=== PATIENT | male | born 1955 | race Caucasian/White ===

== ENCOUNTER → 2017-09-21 11:38 | Outpatient (CLI) | payer OTHER, SELFPAY ==
[2017-09-21 14:41] LABS: Hematocrit 39.9 % (40-54); Hemoglobin 13.2 g/dl (13.0-16.5); Mean Corp Hgb Conc 33.1 g/gl (32-36); Mean Corpuscular Hgb 28.8 pg (27.0-32.0); Mean Corpuscular Volume 87.1 fL (80-94); Mean Platelet Vol. 9.2 fl (6.2-12.0); Platelet Count 209 K/mm3 (150-450); RBC Distribution Width CV 13.5 % (11.6-14.6); Red Blood Count 4.58 M/mm3 (4.6-6.2); White Blood Count 4.6 K/mm3 (4.4-11.0)
[2017-09-21 14:53] LABS: Anion Gap 9 (5-15); BUN 15 mg/dL (7-18); BUN/Creat Ratio 15.8 RATIO (10-20); Calcium,Total 8.7 mg/dL (8.5-10.1); Chloride 105 mmol/L (98-107); Cholesterol 187 mg/dL (200); Creatinine, Serum 0.95 mg/dL (0.70-1.30); EST Glomerular Filtration Rate 85 mL/min (>60); Est Glom Filt Rate - Afr Amer 103 mL/min (>60); Glucose 79 mg/dL (74-106); High Density Lipoprotein 67 mg/dL; Potassium 4.2 mmol/L (3.5-5.1); Scan Indicated on CBC? Y/N NO; Sodium Level 140 mmol/L (136-145); Triglycerides 60 mg/dL; Very Low Density Lipoprotein 12 mg/dL (5-40)
== END ==
PROVIDERS: Family Provider Family Medicine; PCP Family Medicine; Visit Provider Family Medicine
DX: Z00.00 Encounter for general adult medical examination without abnormal findings (principal)
CPT/HCPCS: 36415; 80048; 80061; 85027

== ENCOUNTER → 2019-05-11 09:52 | Outpatient (CLI) | payer OTHER, SELFPAY ==
[2019-05-11 12:26] LABS: Anion Gap 7 (5-15); BUN 17 mg/dL (7-18); BUN/Creat Ratio 16.7 RATIO (10-20); Calcium,Total 8.9 mg/dL (8.5-10.1); Chloride 106 mmol/L (98-107); Cholesterol 186 mg/dL (200); Creatinine, Serum 1.02 mg/dL (0.70-1.30); EST Glomerular Filtration Rate 78 mL/min (>60); Est Glom Filt Rate - Afr Amer 94 mL/min (>60); Glucose 92 mg/dL (74-106); High Density Lipoprotein 51 mg/dL; PSA,Total - Annual Screen 2.64 ng/mL (0.00-4.00); Potassium 4.5 mmol/L (3.5-5.1); Sodium Level 141 mmol/L (136-145); Triglycerides 88 mg/dL; Very Low Density Lipoprotein 18 mg/dL (5-40)
[2019-05-11 13:14] LABS: Hepatitis C Antibody Non-Reactive (Nonreactive)
== END ==
PROVIDERS: Family Provider Family Medicine; PCP Family Medicine; Visit Provider Family Medicine
DX: Z00.00 Encounter for general adult medical examination without abnormal findings (principal); Z12.5 Encounter for screening for malignant neoplasm of prostate; Z11.59 Encounter for screening for other viral diseases; I10 Essential (primary) hypertension
CPT/HCPCS: 36415; 80048; 80061; 84153; 86803; G0103

== ENCOUNTER → 2019-05-22 08:44 | Outpatient (CLI) | payer MEDICARE, SELFPAY ==
--- NOTE | 2019-05-22 08:46 | US_ITS ---
PROCEDURES: ULTRASOUND AORTA REASON FOR EXAM: Male, 64 years old. Screening for abdominal aortic aneurysm. TECHNIQUE: Ultrasound evaluation of the aorta was performed with real-time and static ohara-scale imaging. COMPARISON: None. FINDINGS: There is atherosclerotic plaque formation of the abdominal aorta. Aorta measures: Proximal 2.0 cm. Middle 1.5 cm. Distal 1.4 cm. Aorta measure transversely: Proximal 2.4 cm. Middle 1.6 cm. Distal 1.5 cm. Right iliac artery measures: 0.8 cm. Right iliac artery measure transversely: 0.9 cm. Left iliac artery measures: 0.8 cm. Left iliac artery measure transversely: 0.8 cm. There is no demonstrated aneurysm.. US/Aorta IMPRESSION: No infrarenal abdominal aortic aneurysm. Scattered plaques in the infrarenal abdominal aorta. Electronically Signed: Moy Bucio, at 10:18 EST , Service support ,
== END ==
PROVIDERS: Family Provider Family Medicine; PCP Family Medicine; Referring Provider Family Medicine; Visit Provider Family Medicine
DX: Z00.00 Encounter for general adult medical examination without abnormal findings (principal)
CPT/HCPCS: 76775

== ENCOUNTER 2019-12-20 19:32 | Observation (INO) | payer MEDICARE, SELFPAY ==
[2019-12-20] VITALS (11 sets, daily range): BP systolic 94–133; BP diastolic 55–89; PULSE 53–582; RESP 14–16; TEMP 35.8–36.9; O2SAT 99–100; BMI 22.3; BMI 21.6
--- NOTE | 2019-12-20 20:01 | EKG12_ITS ---
Test Reason : CP Blood Pressure : / mmHG Vent. Rate : 056 BPM Atrial Rate : 056 BPM P-R Int : 124 ms QRS Dur : 088 ms QT Int : 468 ms P-R-T Axes : 040 070 054 degrees QTc Int : 451 ms Sinus bradycardia Nonspecific ST abnormality Abnormal ECG Confirmed by MARITZA MURDOCK, ES ([id number]), publishing editor SONIA ANDERSON ([id number]) on 12/25/2019 2:00:21 PM Referred By: DAYNA Confirmed By:MAURICE SALAS MD
[2019-12-20 20:08] LABS: Absolute Lymphocyte Count 2.72 X10^3/uL (0.83-4.51); Absolute Neutrophil Count 3.7 X10^3/uL (2.0-7.7); Basophil# 0.08 X10^3/uL; Eosinophils% 8.7 % (0-5); Hematocrit 38.5 % (40-54); Hemoglobin 13.1 g/dL (13.0-16.5); Lymphocyte # 2.72 X10^3/ul (4.0); Lymphocyte % 33.9 % (19-41); Mean Corpuscular Hgb 30.2 pg (27.0-32.0); Mean Corpuscular Volume 88.7 fL (80-94); Mean Platelet Vol. 9.3 fl (6.2-12.0); Monocyte# 0.85 X10^3/uL; Monocyte% 10.6 % (0-10); NRBC Flagged by Analyzer 0 % (0-5); Neutrophil # 3.65 X10^3/uL (2.7-7.7); Neutrophil % 45.6 % (47-70); Platelet Count 317 K/mm3 (150-450); RBC Distribution Width CV 12.8 % (11.6-14.6); Red Blood Count 4.34 M/mm3 (4.6-6.2)
--- NOTE | 2019-12-20 20:15 | RAD_ITS ---
STUDY: X-RAY CHEST REASON FOR EXAM: Male, 64 years old. Syncope TECHNIQUE: Frontal view of the chest COMPARISON: None. FINDINGS: The lungs are hyperinflated, but clear. There are no pleural effusions. There is no pneumothorax. The heart is normal in size. The visualized osseous structures are within normal limits. RAD/Chest 1 View (Portable) IMPRESSION: No acute thoracic pathology. Electronically Signed: Zach Serrano, at 20:30 EDT Tel , Service support ,
--- NOTE | 2019-12-20 20:19 | ED.DCSUM_ITS ---
- ER Visit Summary Date of Service: 12/20/19 Chief Complaint: Syncope History of Present Illness: The patient is a 64 M who had a syncopal episode at home. Patient drank orange juice this morning. He had a beer later in the day but was not drinking water. He had been outside chopping wood for several birdie rs. He sat down and was smoking his pipe. His noted that he went unresponsive for less than a minute. His head was bobbing and he seemed confused. He has no history of seizures or syncope. History of hypertension but denies any other significant history. Physical Examination: Blood pressure 94/55 and heart rate 53. Otherwise vitals normal. Patient is lying supine. Alert and oriented. No acute distress. Head and neck atraumatic. Heart regular. Extremities normal, no edema. Skin normal in color. Test Results: EKG showed sinus rhythm at a rate of [address] changes. Labs and chest x-ray pending. Emergency Department Course and Treatment: Patient was treated with IV fluids while awaiting results. Repeat blood pressure was 102 systolic. Will treat with additional fluids and check orthostatics. Patient was orthostatic positive. He received additional fluids. Repeat blood pressure 115/70. CBC, BMP, troponin unremarkable. Chest x-ray unremarkable. EKG as above. Patient has continued severe symptoms and I believe he will need additional IV fluids and telemetry. I contacted the hospitalist. Please note that although the patient does not have documented orthostatic vital signs, the patient could not stand because of lightheadedness and so he was considered positive. Treatment Plan: As above Disposition: Admission Impression: Syncope, orthostatic hypotension This note was generated with [employer] dictation software. It may contain incorrect words, spelling, and punctuation that were not noted in review of the chart prior to signing ED Disposition - Plan for ED Patient: Referrals: Romaine Suarez MD [Primary Care Provider] -
[2019-12-20] MEDS: 0.9% Normal Saline 1,000 ML 1000 ML IV (20:26)
[2019-12-20 20:27] LABS: Anion Gap 9 (5-15); BUN 24 mg/dL (7-18); BUN/Creat Ratio 18.5 RATIO (10-20); Calcium,Total 9.3 mg/dL (8.5-10.1); Chloride 109 mmol/L (98-107); EST Glomerular Filtration Rate 59 mL/min (>60); Est Glom Filt Rate - Afr Amer 71 mL/min (>60); Estimated Creatinine Clearance 53.37 ml/min; Glucose 120 mg/dL (74-106); Sodium Level 142 mmol/L (136-145)
--- NOTE | 2019-12-20 22:13 | PCM.HP.STD ---
Problem List (1) Syncope Status: Acute History of Present Illness Date of Admission: 12/20/19 Chief Complaint: syncope The patient is a 64 year old M with a significant history of hypertension who presented to the emergency department with syncope. His symptoms occurred on the same day of presentation. Patient did some hard work chopping wood after which he drank some beer and smoked pipe. While sitting in his chair he had presyncope. His noticed that patient had passed out. Reportedly he passed out and under 1 minute. He denied any nausea vomiting before the syncopal episode. However after his syncope he had nausea and vomiting. At the emergency department his blood pressure was marginal. In an attempt to check his blood pressure at emergency department patient felt nauseated; weak and wobbly. Past Medical History Medical History: Medical History (Last Updated 12/21/19 @ 01:[address] Alex Celeste MD) Hypertension I10 Allergies No Known Allergies Allergy (Verified 12/20/19 19:40) Home Medications: Ambulatory Orders Medication Instructions Recorded Lisinopril [Zestril] 20 mg PO DAILY 12/20/19 Surgical History: appendectomy Smoking Status: Current some day smoker Tobacco Use: Pipe Alcohol: Occasional - *Family History Maternal History Items: Heart Disease, Hypertension Paternal History Items: Stroke Review of Systems Constitutional: Denies: Chills, Fever, Weight Change HEENT: Denies: Head Aches, Sinus Congestion, Sinus Drainage Cardiovascular: Reports: Syncope. Denies: Chest Pain, Palpitations Respiratory: Denies: Cough, Shortness of breath at rest, Sputum production Gastrointestinal: Reports: Nausea, Vomiting. Denies: Abdominal Pain Genitourinary: Denies: Dysuria Musculoskeletal: Denies: Joint Pain, Joint Tenderness Skin: Denies: Rash, Wounds Neurological: Denies: Numbness, Tingling, Focal weakness Psychiatric: Denies: Anxiety, Depression, Homicidal Ideations, Suicidal Ideations Hematologic/ Lymphatic: Denies: Easy Bruising, Easy Bleeding VTE Information - Inpt Only VTE Present on Admission: No VTE Mechan Device Prophylaxis: None VTE Pharm Prophylaxis ordered?: Yes Patient Problems: Active and Suspected Problems (Last Updated 12/21/19 @ 01:[address] Alex Celeste MD) Syncope (Acute) - Physical Exam Vitals/I&O's: Vital Signs Temp Pulse Resp BP Pulse Ox 96.5 F L 56 L 14 113/67 100 12/20/19 19:33 12/20/19 21:00 12/20/19 21:00 12/20/19 21:00 12/20/19 21:00 Oxygen Delivery Method Room Air Weight: 66.6 kg Body Mass Index (BMI) 22.3 General: Alert, Oriented x3, Cooperative HEENT: Atraumatic, PERRLA, EOMI, Normocephalic Neck: Supple, No JVD, Negative Carotid Bruits, Trachea Midline Lungs: Clear to auscultation, Normal air movement, No rhonchi, No wheeze, No rales Cardiovascular: Normal S1, Normal S2, No murmurs, Bradycardic Abdomen: Bowel Sounds Present, Soft, Non Tender Extremities: No edema, Capillary Refill Less than 3 Seconds Skin: No rashes, No breakdown Musculoskeletal: No Tenderness to Palpation of Joints or Extremities Neurological: Cranial nerves II-XII grossly intact Psych/Mental Status: Normal Affect, Appropriate Laboratory Results 12/20/19 19:15: WBC 8.0, RBC 4.34 L, Hgb 13.1, Hct 38.5 L, MCV 88.7, MCH 30.2, MCHC 34.0, RDW Std Deviation 41.0, RDW Coeff of [place] 12.8, Plt Count 317, MPV 9.3, Immature Gran % (Auto) 0.200, Neut % (Auto) 45.6 L, Lymph % (Auto) 33.9, [place] % (Auto) 10.6 H, Eos % (Auto) 8.7 H, Baso % (Auto) 1.0, Absolute Neuts (auto) 3.7, Absolute Lymphs (auto) 2.72, Nucleated RBC % 0 12/20/19 19:15: Sodium 142, Potassium 4.0, Chloride 109 H, Carbon Dioxide 24.0, Anion Gap 9, BUN 24 H, Creatinine 1.30, Estim Creat Clear Calc 53.37, Est GFR (MDRD) Af Amer 71, Est GFR (MDRD) Non-Af 59 L, BUN/Creatinine Ratio 18.5, Glucose 120 H, Calcium 9.3, Troponin I < 0.015 Assessment/Plan All Active Problems (Last Updated 12/21/19 @ 01:[address] Alex Celeste MD) Syncope (Acute) The patient is a 64 year old M with a significant history of hypertension who presented to the emergency department with syncope. Syncope EKG tracing was reviewed. It showed sinus bradycardia with a rate of 56. There were nonspecific ST or T wave abnormalities. Actual image of chest x-ray was independently reviewed. No acute cardiopulmonary process was seen. We will observe the patient in the progressive care unit on telemetry. Will check echocardiogram. Patient received IV fluid bolus at emergency department. We will continue to hydrate with maintenance normal saline. In the meantime we will stop his home blood pressure medications. Reportedly previously was on 10 mg of lisinopril. Lisinopril 10 mg was stopped for about 6 months. Thereafter he was prescribed 20 mg of lisinopril. Has been taking lisinopril 20 mg for about 8 months. Tobacco abuse Counseled. DVT prophylaxis Subcutaneous Lovenox. OBSV E&M: 63307 Initial observation care L3
[2019-12-21 00:01] VITALS: BMI 21.6
--- NOTE | 2019-12-21 00:08 | ECHOD_ITS ---
Reason For Study: Syncope Procedure This was a 2D Doppler, Color Flow transthoracic echocardiogram. Exam performed portable in patient room. Left Ventricle Normal LV size. The estimated ejection fraction is 60 %. No evidence for diastolic dysfunction. No regional wall motion abnormalities noted. Right Ventricle Normal RV size. Normal systolic function. Atria Normal left atrium. Normal atrial septum. Mitral Valve There is no mitral valve stenosis. Trivial mitral valve insufficiency. Tricuspid Valve There is no tricuspid stenosis. No tricuspid valve insufficiency. Unable to estimate RV systolic pressure due to inadequate jet, pulmonary artery pressure probably normal. Aortic Valve Trisinus/trileaflet aortic valve. There is no aortic stenosis. No aortic valve insufficiency. Pulmonic Valve There is no pulmonic valvular stenosis. No pulmonic valve insufficiency. Great Vessels Normal aortic root. Pericardium/Pleural No pericardial effusion. MMode/2D Measurements & Calculations LVIDd: 4.7 cm IVSd: 0.96 cm Ao root diam: 3.3 cm LVIDs: 2.9 cm LVPWd: 0.82 cm RVDd: 3.0 cm FS: 37.6 % LAV(MOD-bp): 47.7 ml LA A4 area: 12.9 cm2 LA dimension(2D): 3.3 cm LAV(MOD-bp) Indexed: 27.0 ml/m2 LAV(MOD-sp2): 50.9 ml LAV(MOD-sp4): 34.1 ml RA A4 area: 11.6 cm2 Doppler Measurements & Calculations MV E max neil: 79.0 cm/sec Lat Peak E' Neil: 9.4 cm/sec Med Peak E' Neil: 9.4 cm/sec MV A max neil: 53.7 cm/sec E/E' lat: 8.4 E/E' med: 8.4 MV E/A: 1.5 Ao V2 max: 119.7 cm/sec LV V1 max: 92.8 cm/sec PA V2 max: 66.8 cm/sec Ao max P.7 mmHg LV V1 max P.4 mmHg Interpretation Summary The estimated ejection fraction is 60 %. No evidence for diastolic dysfunction. Trivial mitral valve insufficiency. Ordering Physician: Alex Celeste Referring Physician: Chuck Suarez MD Performed By: Joanna Gamboa RDCS
[2019-12-21] MEDS: 0.9% Normal Saline 1,000 ML 100 ML IV ×2 (00:18→09:58)
[2019-12-21 03:00] VITALS: PULSE 51
[2019-12-21 04:43] VITALS: BP 121/65; PULSE 59; RESP 16; TEMP 36.4; O2SAT 98
[2019-12-21 04:44] VITALS: BP 121/65; BP 132/81; BP 141/70; PULSE 59; PULSE 60; PULSE 75
[2019-12-21 06:17] LABS: Absolute Lymphocyte Count 0.74 X10^3/uL (0.83-4.51); Absolute Neutrophil Count 4.2 X10^3/uL (2.0-7.7); Basophil# 0.05 X10^3/uL; Basophil% 0.9 % (0-1); Eosinophil# 0.17 X10^3/uL; Hematocrit 37.1 % (40-54); Hemoglobin 12.1 g/dL (13.0-16.5); Lymphocyte # 0.74 X10^3/ul (4.0); Lymphocyte % 12.9 % (19-41); Mean Corp Hgb Conc 32.6 g/dL (32-36); Mean Corpuscular Hgb 29.7 pg (27.0-32.0); Mean Corpuscular Volume 91.2 fL (80-94); Mean Platelet Vol. 8.9 fl (6.2-12.0); Monocyte# 0.53 X10^3/uL; Monocyte% 9.2 % (0-10); NRBC Flagged by Analyzer 0 % (0-5); Neutrophil # 4.24 X10^3/uL (2.7-7.7); Neutrophil % 73.8 % (47-70); Platelet Count 214 K/mm3 (150-450); RBC Distribution Width CV 12.8 % (11.6-14.6); RBC Distribution Width SD 41.9 fl (35.1-43.9); Red Blood Count 4.07 M/mm3 (4.6-6.2); White Blood Count 5.7 K/mm3 (4.4-11.0)
[2019-12-21 06:47] LABS: Anion Gap 6 (5-15); BUN 22 mg/dL (7-18); BUN/Creat Ratio 21.8 RATIO (10-20); Calcium,Total 8.3 mg/dL (8.5-10.1); Chloride 110 mmol/L (98-107); Creatinine, Serum 1.01 mg/dL (0.70-1.30); EST Glomerular Filtration Rate 79 mL/min (>60); Est Glom Filt Rate - Afr Amer 95 mL/min (>60); Estimated Creatinine Clearance 66.52 ml/min; Glucose 91 mg/dL (74-106); Potassium 4.5 mmol/L (3.5-5.1); Sodium Level 140 mmol/L (136-145)
[2019-12-21 07:00] VITALS: PULSE 51
[2019-12-21 09:53] VITALS: BP 121/68; PULSE 55; RESP 16; TEMP 36.6; O2SAT 99
[2019-12-21] MEDS: Enoxaparin 40 MG/0.4 ML Syringe SC (09:58)
--- NOTE | 2019-12-21 13:12 | DCINST_ITS ---
- Discharge Diagnoses Current Active Problems: Current Active and Chronic Problems (Last Updated 12/21/19 @ 01:[address] Alex Celeste MD) Syncope (Acute) You will use the following diet at home:: No restrictions - drink plenty of fluids, especially when it is hot. Allergies/Adverse Reactions: Allergies No Known Allergies Allergy (Verified 12/20/19 19:40) Medications to take at Discharge Lisinopril [Zestril] 20 mg PO DAILY 12/20/19 Primary Care Physician: Romaine Suarez MD [Primary Care Provider] - Within 2 Weeks Test Results: Test results from this visit will be discussed in further detail at your follow- up appointment, if applicable. Proposed Discharge Date: 12/21/19
--- NOTE | 2019-12-21 13:13 | DS.PCM_ITS ---
Discharge Date and Diagnosis - Problem List Patient Problems: Active and Suspected Problems (Last Updated 12/21/19 @ 01:[address] Alex Celeste MD) Syncope (Acute) Date of Admission: 12/20/19 Date of Discharge: 12/21/19 - Primary Discharge Diagnosis Acute Problems: Active Problems (Last Updated 12/21/19 @ 01:[address] Alex Celeste MD) Syncope (Acute) Hospital Course and Treatment Imaging Results: Clinical Impression(s) from Imaging Studies Chest X-Ray 12/20/19 20:15 IMPRESSION: No acute thoracic pathology. Electronically Signed: Zach Serrano, at 20:30 EDT Tel , Service support , Operations: None Procedures: 2-D Echocardiogram - The estimated ejection fraction is 60 %. No evidence for diastolic dysfunction. Trivial mitral valve insufficiency. Summary of Care Provided: The patient is a 64 year old M resents with a syncopal episode. Patient stated that he was chopping at [employer] wood been drinking on a hot day on the . When had dinner and had 1 beer and then went and sat in a chair and then was unresponsive for a period of time after being attempted be woken by his spouse. Patient presented to the emergency room and his work-up was unremarkable. Patient did have an echocardiogram that showed an EF of 60%. Rest of the patient's work-up was unremarkable. This was felt to be a vasovagal episode likely due to overexertion plus dehydration plus minus postprandial and alcohol. Advised patient to drink more fluid triggered when he is out working outside on a hot day. No restrictions necessary. [] Patient Problems: Active and Suspected Problems (Last Updated 12/21/19 @ 01:[address] Alex Celeste MD) Syncope (Acute) - Physical Exam Vitals/I&O's: Vital Signs Temp Pulse Resp BP Pulse Ox 36.6 C 55 L 16 121/68 H 99 12/21/19 09:53 12/21/19 09:53 12/21/19 09:53 12/21/19 09:53 12/21/19 09:53 Oxygen Delivery Method Room Air Weight: 64.5 kg Body Mass Index (BMI) 21.6 Orthostatic Vital Signs Start: 12/21/19 00:47 Freq: q24h Status: Active Protocol: Activity Type Activity Date Activity User E-Sign Co-Sign Detail Recorded Client Recorded Date Recorded By Document 12/21/19 04:44 VASU [id number] 12/21/19 04:48 VASU 12/21/19 04:44 Orthostatic Vitals Standing -Blood Pressure (90/60-120/80) 132/81 H -Extremity Use Left Arm -Pulse Rate (60-100) 75 Sitting -Blood Pressure (90/60-120/80) 141/70 H -Extremity Use Left Arm -Pulse Rate (60-100) 60 Lying -Blood Pressure (90/60-120/80) 121/65 H -Extremity Use Left Arm -Pulse Rate (60-100) 59 L Intake and Output for Last 24 Hours 12/19/19 12/20/19 12/21/19 23:59 23:59 23:59 Intake Total 1200 / 1200 1356.66 / 1356.66 Output Total 0 / 0 300 / 300 Balance 1200 / 1200 1056.66 / 1056.66 General: Alert, No apparent distress HEENT: Atraumatic, Normocephalic Oral: Moist Mucosa, No Gingival or Mucosal Lesions/ Ulcerations Neck: No Nodes, Thyroid Normal Size and Texture Lungs: Clear to auscultation, Normal air movement, No rhonchi, No wheeze Cardiovascular: Regular rate, Regular Rhythm, Normal S1, Normal S2 Abdomen: Bowel Sounds Present, Soft, Non Tender, Non-Distended Extremities: No edema, No Calf Tenderness Laboratory Results 12/20/19 19:15: WBC 8.0, RBC 4.34 L, Hgb 13.1, Hct 38.5 L, MCV 88.7, MCH 30.2, MCHC 34.0, RDW Std Deviation 41.0, RDW Coeff of [place] 12.8, Plt Count 317, MPV 9.3, Immature Gran % (Auto) 0.200, Neut % (Auto) 45.6 L, Lymph % (Auto) 33.9, [place] % (Auto) 10.6 H, Eos % (Auto) 8.7 H, Baso % (Auto) 1.0, Absolute Neuts (auto) 3.7, Absolute Lymphs (auto) 2.72, Nucleated RBC % 0 12/20/19 19:15: Sodium 142, Potassium 4.0, Chloride 109 H, Carbon Dioxide 24.0, Anion Gap 9, BUN 24 H, Creatinine 1.30, Estim Creat Clear Calc 53.37, Est GFR (MDRD) Af Amer 71, Est GFR (MDRD) Non-Af 59 L, BUN/Creatinine Ratio 18.5, Glucose 120 H, Calcium 9.3, Troponin I < 0.015 12/21/19 05:59: WBC 5.7, RBC 4.07 L, Hgb 12.1 L, Hct 37.1 L, MCV 91.2, MCH 29.7, MCHC 32.6, RDW Std Deviation 41.9, RDW Coeff of [place] 12.8, Plt Count 214, MPV 8.9, Immature Gran % (Auto) 0.200, Neut % (Auto) 73.8 H, Lymph % (Auto) 12.9 L, [place] % (Auto) 9.2, Eos % (Auto) 3.0, Baso % (Auto) 0.9, Absolute Neuts (auto) 4.2, Absolute Lymphs (auto) 0.74 L, Nucleated RBC % 0 12/21/19 05:59: Sodium 140, Potassium 4.5, Chloride 110 H, Carbon Dioxide 24.0, Anion Gap 6, BUN 22 H, Creatinine 1.01, Estim Creat Clear Calc 66.52, Est GFR (MDRD) Af Amer 95, Est GFR (MDRD) Non-Af 79, BUN/Creatinine Ratio 21.8 H, Glucose 91, Calcium 8.3 L Current Medications Acetaminophen (Tylenol) 650 mg PO Q6H PRN PRN PRN Reason: Pain Score 1-10/Temp > 100.7 F Dextrose (D50w Syringe) 0 gm IV X1 PRN; Protocol PRN Reason: Hypoglycemia Enoxaparin Sodium (Lovenox) 40 mg SC DAILY JOVAN Last Admin: 12/21/19 09:58 Dose: 40 mg Documented by: Glucagon () 1 mg IM .X1 PRN PRN Reason: Hypoglycemia Sodium Chloride () 250 mls @ 15 mls/hr IV .[id number] PRN PRN Reason: Saline Flush Sodium Chloride () 250 mls @ 15 mls/hr IV .[id number] PRN PRN Reason: Additional IVPB Infusion Sodium Chloride () 1,000 mls @ 100 mls/hr IV .Q10H JOVAN Last Admin: 12/21/19 09:58 Dose: 100 mls/hr Documented by: Ondansetron HCl (Zofran) 4 mg IV Q8H PRN PRN PRN Reason: NAUSEA/VOMITING Sodium Chloride () 10 - 40 ml IV UD PRN PRN Reason: SALINE FLUSH Discharge Diet: No Restrictions Home Medications: Medications to take at Discharge Lisinopril [Zestril] 20 mg PO DAILY 12/20/19 Primary Care Physician: Romaine Suarez MD [Primary Care Provider] - Within 2 Weeks Disposition: Home Minutes spent on discharge:: 28 Patient Condition:: Good Medical Necessity - Tobacco Use Smoking Status: Current some day smoker Tobacco Use: Pipe Meaningful Use Info Meaningful Use Diagnoses (Choose all that apply): None applicable OBSV E&M: 01623 Observation care discharge
== END 2019-12-21 13:12 | disposition home or self-care (01) ==
LOC: ED 20:41 → PCU 22:47
PROVIDERS: Admitting Provider Hospitalist; Emergency Provider Emergency Medicine; PCP Family Medicine
DX: I95.1 Orthostatic hypotension (principal); I34.0 Nonrheumatic mitral (valve) insufficiency; I10 Essential (primary) hypertension; R41.0 Disorientation, unspecified; R00.1 Bradycardia, unspecified; F17.290 Nicotine dependence, other tobacco product, uncomplicated; Z79.899 Other long term (current) drug therapy
CPT/HCPCS: 71045; 80048; 84484; 85025; 93005; 93306; 96360; 96361; 96372; 97802; 99218; 99285; 99406; J7030; A4216; G0378

== ENCOUNTER → 2021-05-21 09:26 | Outpatient (CLI) | payer MEDICARE, SELFPAY ==
[2021-05-21 11:02] LABS: Anion Gap 5 (5-15); BUN 17 mg/dL (7-18); BUN/Creat Ratio 16.8 RATIO (10-20); Calcium,Total 9.3 mg/dL (8.5-10.1); Chloride 108 mmol/L (98-107); Cholesterol 187 mg/dL (200); Creatinine, Serum 1.01 mg/dL (0.70-1.30); EST Glomerular Filtration Rate 78 mL/min (>60); Est Glom Filt Rate - Afr Amer 95 mL/min (>60); Glucose 90 mg/dL (74-106); High Density Lipoprotein 50 mg/dL; PSA,Total - Annual Screen 3.49 ng/mL (0.00-4.00); Potassium 4.8 mmol/L (3.5-5.1); Sodium Level 140 mmol/L (136-145); Triglycerides 65 mg/dL; Very Low Density Lipoprotein 13 mg/dL (5-40)
== END ==
PROVIDERS: PCP Family Medicine; Referring Provider Family Medicine; Visit Provider Family Medicine
DX: I10 Essential (primary) hypertension (principal); Z12.5 Encounter for screening for malignant neoplasm of prostate
CPT/HCPCS: 36415; 80048; 80061; 84153; G0103

== ENCOUNTER → 2022-06-17 | Outpatient (CLI) | payer MEDICARE, SELFPAY ==
[2022-06-17 15:29] LABS: Anion Gap 6 (5-15); BUN 22 mg/dL (7-18); BUN/Creat Ratio 21.2 RATIO (10-20); Calcium,Total 9.4 mg/dL (8.5-10.1); Chloride 107 mmol/L (98-107); Creatinine, Serum 1.04 mg/dL (0.70-1.30); EST Glomerular Filtration Rate 75 mL/min (>60); Est Glom Filt Rate - Afr Amer 91 mL/min (>60); Glucose 95 mg/dL (74-106); PSA,Total - Annual Screen 3.28 ng/mL (0.00-4.00); Potassium 5.1 mmol/L (3.5-5.1); Sodium Level 139 mmol/L (136-145)
== END | disposition home or self-care (01) ==
LOC: MFPLAB 11:39
PROVIDERS: PCP Family Medicine; Referring Provider Family Medicine; Visit Provider Family Medicine
DX: I10 Essential (primary) hypertension (principal); Z12.5 Encounter for screening for malignant neoplasm of prostate
CPT/HCPCS: 36415; 80048; 84153; G0103

== ENCOUNTER → 2023-06-23 | Outpatient (CLI) | payer MEDICARE, SELFPAY ==
[2023-06-23 15:37] LABS: Hematocrit 40.1 % (40-54); Hemoglobin 13.3 g/dL (13.0-16.5); Mean Corp Hgb Conc 33.2 g/dL (32-36); Mean Corpuscular Hgb 29.9 pg (27.0-32.0); Mean Corpuscular Volume 90.1 fL (80-94); Mean Platelet Vol. 9.1 fl (6.2-12.0); Platelet Count 247 K/mm3 (150-450); RBC Distribution Width CV 12.9 % (11.6-14.6); RBC Distribution Width SD 42.2 fl (35.1-43.9); Red Blood Count 4.45 M/mm3 (4.6-6.2); White Blood Count 4.5 K/mm3 (4.4-11.0)
[2023-06-23 16:17] LABS: Anion Gap 6 (5-15); BUN 20 mg/dL (7-18); BUN/Creat Ratio 17.5 RATIO (10-20); Calcium,Total 9.1 mg/dL (8.5-10.1); Chloride 108 mmol/L (98-107); Cholesterol 200 mg/dL (200); Creatinine, Serum 1.14 mg/dL (0.70-1.30); EST Glomerular Filtration Rate 68 mL/min (>60); Est Glom Filt Rate - Afr Amer 82 mL/min (>60); Glucose 83 mg/dL (74-106); High Density Lipoprotein 50 mg/dL; PSA,Total - Annual Screen 3.66 ng/mL (0.00-4.00); Potassium 5.2 mmol/L (3.5-5.1); Sodium Level 138 mmol/L (136-145); Triglycerides 85 mg/dL; Very Low Density Lipoprotein 17 mg/dL (5-40)
== END | disposition home or self-care (01) ==
LOC: MFPLAB 11:15
PROVIDERS: PCP Family Medicine; Visit Provider Family Medicine
DX: I10 Essential (primary) hypertension (principal); J44.9 Chronic obstructive pulmonary disease, unspecified; Z12.5 Encounter for screening for malignant neoplasm of prostate
CPT/HCPCS: 36415; 80048; 80061; 84153; 85027; G0103

== ENCOUNTER → 2024-06-26 | Outpatient (CLI) | payer MEDICARE, SELFPAY ==
[2024-06-26 11:06] LABS: ALB/GLOB Ratio 0.9 RATIO (0.9-2.4); AST(SGOT) 19 U/L (15-37); Alanine Aminotransfer ALT/SGPT 20 U/L (16-61); Albumin, Serum 3.5 g/dL (3.2-5.0); Alkaline Phosphatase 84 U/L (45-117); Anion Gap 4 (5-15); BUN 25 mg/dL (7-18); BUN/Creat Ratio 21.7 RATIO (10-20); Calcium,Total 9.2 mg/dL (8.5-10.1); Chloride 110 mmol/L (98-107); Cholesterol 207 mg/dL (200); Creatinine, Serum 1.15 mg/dL (0.70-1.30); EST Glomerular Filtration Rate 67 mL/min (>60); Est Glom Filt Rate - Afr Amer 81 mL/min (>60); Globulin 3.8 g/dL (2.2-4.2); Glucose 95 mg/dL (74-106); High Density Lipoprotein 51 mg/dL; PSA,Total - Annual Screen 3.97 ng/mL (0.00-4.00); Potassium 4.8 mmol/L (3.5-5.1); Protein, Total 7.3 g/dL (6.4-8.2); Sodium Level 138 mmol/L (136-145); Triglycerides 152 mg/dL; Very Low Density Lipoprotein 30 mg/dL (5-40)
== END | disposition home or self-care (01) ==
PROVIDERS: PCP Family Medicine; Referring Provider Family Medicine; Visit Provider Family Medicine
DX: Z12.5 Encounter for screening for malignant neoplasm of prostate (principal); I10 Essential (primary) hypertension
CPT/HCPCS: 36415; 80053; 80061; 84153; G0103

== ENCOUNTER → 2025-06-14 | Outpatient (CLI) | payer MEDICARE, SELFPAY ==
[2025-06-14 13:22] LABS: Anion Gap 10 (5-15); BUN 25 mg/dL (4-19); BUN/Creat Ratio 19.7 RATIO (10-20); Calcium,Total 9.8 mg/dL (7.6-11.0); Carbon Dioxide 23.5 mmol/L (21.0-32.0); Chloride 105 mmol/L (98-108); Glucose 99 mg/dL (70-99); PSA,Total - Annual Screen 4.46 ng/mL (0.02-4.00); Potassium 5.2 mmol/L (3.3-5.1)
== END | disposition home or self-care (01) ==
LOC: MFPLAB 10:13
PROVIDERS: PCP Family Medicine; Visit Provider Family Medicine
DX: Z12.5 Encounter for screening for malignant neoplasm of prostate (principal); I10 Essential (primary) hypertension
CPT/HCPCS: 36415; 80048; 84153; G0103